=== PATIENT | male | born 1970 | race Caucasian/White ===

== ENCOUNTER 2018-11-02 04:33 | Emergency (ER) | payer MEDICAID, SELFPAY ==
[2018-11-02 04:34] VITALS: BP 218/127; PULSE 110; RESP 18; TEMP 36.5; O2SAT 97; BMI 33.8
--- NOTE | 2018-11-02 04:43 | EKG12_ITS ---
Test Reason : Blood Pressure : / mmHG Vent. Rate : 095 BPM Atrial Rate : 095 BPM P-R Int : 128 ms QRS Dur : 104 ms QT Int : 354 ms P-R-T Axes : 056 013 153 degrees QTc Int : 444 ms Normal sinus rhythm Minimal voltage criteria for LVH, may be normal variant ST & T wave abnormality, consider lateral ischemia Abnormal ECG Confirmed by ENRIQUE KING ([id number]), book or script editor NAVEED SOUTH ([id number]) on 11/04/2018 11:16:50 AM Referred By: GUILLERMO Confirmed By:ENRIQUE KING
--- NOTE | 2018-11-02 04:43 | CT_ITS ---
STUDY: CT BRAIN WITHOUT CONTRAST REASON FOR EXAM: Male, 48 years old. Occipital headache, hypertension on metastases. RADIATION DOSAGE (If Supplied By Facility): CTDIvol = ( 44.99 ) mGy, DLP = ( 745.49 ) mGycm TECHNIQUE: Transaxial CT imaging of the brain was performed without administration of intravenous contrast material. Individualized dose optimization techniques were used for this CT. COMPARISON: No relevant priors. FINDINGS: Normal soft tissue structures. Normal calvarium. Normal size ventricles and extra-axial spaces for the patient's age. There are areas of decreased attenuation within the white matter tracts of the supratentorial brain, consistent with microvascular disease changes. Normal basal ganglia and thalami. Normal brainstem. Normal cerebellum. There is no intracranial hemorrhage. There are no findings of an acute ischemic infarction. There is mucoperiosteal inflammatory disease of the paranasal sinuses consistent with mild chronic sinusitis. Mild opacification of the left inferior mastoid air cells, minimal opacification right inferior mastoid air cells. The ossicles are clear. CT/Brain/Head without Contrast IMPRESSION: Mild involutional changes of white matter. There is no acute intracranial pathology. Mild left greater than right mastoiditis, no evidence of otomastoiditis. Electronically Signed: Elizabeth Farrell MD at 5:28 EDT , Service support ,
[2018-11-02 04:57] LABS: Absolute Lymphocyte Count 2.82 X10^3/ul (0.83-4.51); Absolute Neutrophil Count 6.1 X10^3/uL (2.0-7.7); Basophil# 0.03 X10^3/uL; Basophil% 0.3 % (0-1); Eosinophil# 0.34 X10^3/uL; Eosinophils% 3.2 % (0-5); Hematocrit 42.3 % (40-54); Hemoglobin 13.6 g/dl (13.0-16.5); Lymphocyte # 2.82 X10^3/ul (4.0); Lymphocyte % 26.8 % (19-41); Mean Corp Hgb Conc 32.2 g/gl (32-36); Mean Corpuscular Hgb 27.8 pg (27.0-32.0); Mean Corpuscular Volume 86.3 fL (80-94); Mean Platelet Vol. 11.4 fl (6.2-12.0); Monocyte# 1.16 X10^3/uL; Neutrophil # 6.14 X10^3/uL (2.7-7.7); Neutrophil % 58.5 % (47-70); Platelet Count 207 K/mm3 (150-450); RBC Distribution Width CV 15.7 % (11.6-14.6); RBC Distribution Width SD 49.3 fl (35.1-43.9); White Blood Count 10.5 K/mm3 (4.4-11.0)
[2018-11-02 04:59] LABS: POSITIVE COUNT NO; POSITIVE DIFFERENTIAL NO; POSITIVE MORPHOLOGY NO
[2018-11-02 05:04] LABS: Anion Gap 6 (5-15); BUN 21 mg/dL (7-18); BUN/Creat Ratio 18.3 RATIO (10-20); Calcium,Total 8.8 mg/dL (8.5-10.1); Chloride 109 mmol/L (98-107); Creatinine, Serum 1.15 mg/dL (0.70-1.30); EST Glomerular Filtration Rate 71 mL/min (>60); Est Glom Filt Rate - Afr Amer 86 mL/min (>60); Estimated Creatinine Clearance 76.85 ml/min; Glucose 111 mg/dL (74-106); Potassium 3.9 mmol/L (3.5-5.1); Sodium Level 142 mmol/L (136-145)
[2018-11-02] MEDS: hydroCHLOROthiazide 25 MG Tablet PO (05:04)
[2018-11-02] MEDS: Lisinopril 10 MG Tablet PO (05:04)
--- NOTE | 2018-11-02 06:22 | ED.DCSUM_ITS ---
- ER Visit Summary Date of Service: 11/02/18 Chief Complaint: High blood pressure History of Present Illness: The patient is a 48 M who presents with uncontrolled blood pressure of years duration. He states that he wakes up every morning with a headache. This is also been occurring for years. He does however state that it is slowly been getting worse. He was seen in the emergency department a couple of years ago for elevated blood pressure. He was started on hydrochlorothiazide and referred to a primary care physician. Patient states that he did follow up but every time he was in the office because his blood pressure was so high he was sent to the emergency department. He states that he got tired of this so he just quit following up. He denies any chest pain or shortness of breath. No lightheadedness or dizziness. He has otherwise been well. No fevers or vomiting. Physical Examination: Initial blood pressure 218/127 heart rate 110 respiratory rate 18 afebrile Alert and oriented with no focal or lateralizing neurological deficits normal strength normal sensation PERRLA, EOMI Heart regular rhythm slightly tachycardic Lungs clear Abdomen soft Test Results: EKG shows normal sinus rhythm at a rate of 95. He does have some slight ST depression in leads I, aVL and V4 through V6 as well as T wave inversions. Labs unremarkable. BUN 21. Creatinine within normal limits. Troponin [address] of the head shows no acute pathology. Emergency Department Course and Treatment: Patient has lateral T wave abnormalities which are likely related to uncontrolled hypertension. He has no symptoms of ischemia and troponin is negative. He was given both hydrochlorothiazide and lisinopril here. On reevaluation his systolic blood pressure is improved to about 180. He is asymptomatic. Patient presents with long-standing elevated blood pressure. I do not believe he requires hospitalization at this time. He was given a referral for a primary care physician. He understands to return for new or worsening symptoms and was instructed on specific signs and symptoms to monitor for. We will start him on 2 agents. Patient discharged. Treatment Plan: [] Disposition: Discharge Impression: Uncontrolled hypertension This note was generated with [employer] software. It may contain incorrect words, spelling, and punctuation that were not noted in review of the chart prior to signing ED Disposition - Plan for ED Patient: Referrals: Care Physician,No Primary [Primary Care Provider] -
--- NOTE | 2018-11-02 06:22 | ED.DEP ---
ED Disposition - Plan for ED Patient: Instructions: ED Hypertension Conf Out Of Control Prescriptions: Hydrochlorothiazide [Hctz] 25 mg PO DAILY #30 tab Lisinopril [Zestril] 10 mg PO DAILY #30 tab Referrals: Care Physician,No Primary [Primary Care Provider] -
[2018-11-02 06:36] VITALS: BP 179/133; RESP 18
--- NOTE | 2018-11-02 06:37 | ED.DEP ---
ED Disposition - Plan for ED Patient: Instructions: ED Hypertension Conf Out Of Control Prescriptions: Hydrochlorothiazide [Hctz] 25 mg PO DAILY #30 tab Lisinopril [Zestril] 10 mg PO DAILY #30 tab Referrals: Care Physician,No Primary [Primary Care Provider] - Jim Sargent DO [STAFF PHYSICIAN] -
== END 2018-11-02 06:38 | disposition home or self-care (01) ==
LOC: ED 05:19
PROVIDERS: Emergency Provider Emergency Medicine
DX: I10 Essential (primary) hypertension (principal); Z72.0 Tobacco use; Z79.899 Other long term (current) drug therapy
CPT/HCPCS: 70450; 80048; 84484; 85025; 93005; 99284; A4216

== ENCOUNTER 2019-02-26 20:14 | Emergency (ER) | payer SELFPAY ==
[2019-02-26 20:15] VITALS: BP 169/103; PULSE 114; RESP 15; TEMP 36.4; BMI 32.5
--- NOTE | 2019-02-26 20:27 | RAD_ITS ---
STUDY: X-RAY - LEFT ANKLE REASON FOR EXAM: Male, 48 years old. Injury, pain. TECHNIQUE: 3 view(s) of the ankle. COMPARISON: None. FINDINGS: There is a nondisplaced fracture of the medial malleolus. Distal tibia and fibula are otherwise intact. No demonstrated joint effusion. Normal visualized talus and calcaneus. The visualized subtalar, talonavicular, calcaneocuboid and tarsal articulations are normal. The soft tissue structures are unremarkable. RAD/Ankle min 3 Views IMPRESSION: Nondisplaced medial malleolus fracture. Electronically Signed: June Reyna MD at 20:53 EDT Tel , Service support ,
--- NOTE | 2019-02-26 20:27 | RAD_ITS ---
STUDY: X-RAY - LEFT FOOT CLINICAL: Male, 48 years old. Injury, pain. TECHNIQUE: 3 view(s) of the foot. COMPARISON: None. FINDINGS: Acute fracture of the medial malleolus. Normal talus, calcaneus, and tarsal bones. Normal visualized subtalar, talonavicular, calcaneocuboid, tarsal and tarsometatarsal articulations. There is mild periosteal reaction along the shaft of the second metatarsal. This may reflect acute occult fracture, stress injury, less likely bone or soft tissue mass. Remaining metatarsal bones are unremarkable. Normal metatarsophalangeal joint of the great toe. Normal tibial and fibular sesamoid bones. Normal interphalangeal joint of the great toe. Normal phalanges of the great toe. Normal second through fifth metatarsophalangeal joints. Normal interphalangeal joints and phalanges of the lesser toes. Foreign body is noted in the first metatarsal interspace adjacent to the second metatarsal head. RAD/Foot min 3 Views IMPRESSION: 1. Acute medial malleolus fracture. Please refer to left ankle radiograph report. 2. Mild periosteal reaction along the second metatarsal shaft. Please note comments above. 3. Foreign body consistent with ball bearing in the first metatarsal interspace. Electronically Signed: June Reyna MD at 20:59 EDT Tel , Service support ,
--- NOTE | 2019-02-26 20:28 | ED.VISSUMM ---
- ER Visit Summary Date of Service: 02/26/19 Chief Complaint: Fall and left foot and ankle injury History of Present Illness: The patient is a 48 M M past medical history. Patient states he slipped going down the steps of his home on Wednesday. Injuring his left foot and ankle. No prior history to the left foot and ankle. No prior surgery. States is unable to walk on it. He has increasing pain and swelling to both. Denies any other injuries did not hit his head. No LOC. Physical Examination: Middle-aged male. No acute distress. Vital signs are stable afebrile. HEENT exam atraumatic. C-spine nontender. Lungs clear to auscultation. Heart regular rhythm rate about 110 no murmur. Chest wall nontender. Abdomen soft nontender. Remedies moves all 4. Neurovascular intact. Both upper extremities and right lower extremity are nontender. No signs of trauma. Normal range of motion. Normal sensation. Left lower extremity the left hip and knee are nontender or swollen. He has normal flexion-extension left knee and hip. Left ankle is swollen and tender. As is the left foot primarily in the left lateral side. DP pulses intact. There is mild bruising. He is able wiggle his toes. There is no gross bony deformity. The lower leg otherwise is nontender. Neurologically he is awake and alert with no focal motor deficits. Back is nontender. Test Results: Left ankle x-ray 3 views shows a nondisplaced medial malleolus fracture read by myself and now the radiologist. Left foot x-ray 3 views soft tissue swelling but no acute fracture noted. Emergency Department Course and Treatment: Patient treated with [place] for pain. I did go over the x-ray results with the patient. He was placed in a short leg posterior splint. Was instructed crutches no weightbearing. Treatment Plan: Ice and elevate. Follow-up with orthopedics. Nonweightbearing. Disposition: Discharge Impression: Acute fall Acute left ankle nondisplaced medial malleolus fracture Acute left foot sprain and contusion This note was generated with [employer] dictation software. It may contain incorrect words, spelling, and punctuation that were not noted in review of the chart prior to signing ED Disposition - Plan for ED Patient: Referrals: Care Physician,No Primary [Primary Care Provider] -
[2019-02-26] MEDS: HYDROcodone Bitartrate/Apap 5/325 Tablet PO (20:32)
--- NOTE | 2019-02-26 21:13 | ED.DEP ---
ED Disposition - Plan for ED Patient: Disposition: Home or Assisted Living Instructions: FRACTURE, Lower Extremity Prescriptions: Hydrocodone/Acetaminophen [[place] 7.5-325 Tablet] 1 ea PO 4X/DAY PRN PRN 5 Days #20 tab PRN Reason: Pain Prescription Printed Referrals: Payton Pereira DO [STAFF PHYSICIAN] - As soon as possible Additional Instructions: Ice and elevate your ankle as much as possible. Call and follow-up with you with possible. Call their office tomorrow morning. Motrin for pain and swelling. Limited [place] for worse pain. Keep the splint dry and clean. No weightbearing.
[2019-02-26 21:20] VITALS: RESP 20
== END 2019-02-26 21:27 | disposition home or self-care (01) ==
PROVIDERS: Emergency Provider Emergency Medicine
DX: S82.55XA Nondisplaced fracture of medial malleolus of left tibia, initial encounter for closed fracture (principal); S93.602A Unspecified sprain of left foot, initial encounter; W10.9XXA Fall (on) (from) unspecified stairs and steps, initial encounter; Y93.9 Activity, unspecified; Y92.9 Unspecified place or not applicable; Y99.9 Unspecified external cause status; Z72.0 Tobacco use
CPT/HCPCS: 29515; 73610; 73630; 99283

== ENCOUNTER → 2019-03-15 14:06 | Outpatient (CLI) | payer MEDICAID, SELFPAY ==
[2019-03-15 07:58] VITALS: BMI 32.5
--- NOTE | 2019-03-15 14:07 | RAD_ITS ---
STUDY: X-RAY - LEFT ANKLE REASON FOR EXAM: Male, 48 years old. Fracture TECHNIQUE: 3 view(s) of the ankle. COMPARISON: 02/26/2019 FINDINGS: There is a stable minimally displaced fracture of the medial malleolus. There is no significant interval healing demonstrated. There is no new fracture. There are no radiodense foreign bodies. RAD/Ankle min 3 Views IMPRESSION: No significant change in the previously seen medial malleolar fracture when compared with 02/18/2019. Electronically Signed: Edward Mckay, at 14:24 EDT Tel , Service support ,
== END ==
PROVIDERS: Referring Provider Orthopaedic Surgery; Visit Provider Orthopaedic Surgery
DX: S82.53XA Displaced fracture of medial malleolus of unspecified tibia, initial encounter for closed fracture (principal); X58.XXXA Exposure to other specified factors, initial encounter; Y93.9 Activity, unspecified; Y92.9 Unspecified place or not applicable; Y99.9 Unspecified external cause status
CPT/HCPCS: 73610

== ENCOUNTER → 2019-04-12 09:30 | Outpatient (CLI) | payer MEDICAID, SELFPAY ==
[2019-04-12 09:20] VITALS: BMI 32.5
--- NOTE | 2019-04-12 09:31 | RAD_ITS ---
STUDY: X-RAY - LEFT ANKLE REASON FOR EXAM: Male, 48 years old. Fracture TECHNIQUE: 3 view(s) of the ankle. COMPARISON: March 15, 2019 FINDINGS: There is a partially healed fracture of the medial malleolus with early callus deposition since prior study. No other significant change.. RAD/Ankle min 3 Views IMPRESSION: Early healing fracture of the medial malleolus Electronically Signed: Wicho White MD at 22:50 EDT , Service support ,
== END ==
PROVIDERS: Referring Provider Orthopaedic Surgery; Visit Provider Orthopaedic Surgery
DX: S82.53XA Displaced fracture of medial malleolus of unspecified tibia, initial encounter for closed fracture (principal); X58.XXXA Exposure to other specified factors, initial encounter; Y93.9 Activity, unspecified; Y92.9 Unspecified place or not applicable; Y99.9 Unspecified external cause status
CPT/HCPCS: 73610

== ENCOUNTER 2019-08-03 17:51 | Emergency (ER) | payer OTHER, SELFPAY ==
[2019-04-12 09:20] VITALS: BMI 32.5
[2019-08-03 17:52] VITALS: PULSE 105; RESP 16; TEMP 36.2; O2SAT 96; BMI 34.0
[2019-08-03 17:55] VITALS: BP 192/117
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
[2019-08-03 19:38] VITALS: BP 196/126; PULSE 96; RESP 16; O2SAT 93
== END 2019-08-03 19:44 | disposition home or self-care (01) ==
PROVIDERS: Emergency Provider Emergency Medicine
DX: S39.012A Strain of muscle, fascia and tendon of lower back, initial encounter (principal); V49.40XA Driver injured in collision with unspecified motor vehicles in traffic accident, initial encounter; Y93.89 Activity, other specified; Z72.0 Tobacco use
CPT/HCPCS: 99282

== ENCOUNTER 2020-10-18 10:58 | Outpatient (RCR) | payer MEDICAID, SELFPAY ==
[2020-10-18] MEDS: COVID-19 VACC, MRNA(PFIZER)/PF 30 MCG/0.3 ML SYRINGE IM (09:18)
[2020-11-08] MEDS: COVID-19 VACC, MRNA(PFIZER)/PF 30 MCG/0.3 ML SYRINGE IM (09:41)
== END 2020-10-18 23:59 ==
LOC: IMMUN 10:58
PROVIDERS: Visit Provider Family Medicine
DX: Z23 Encounter for immunization (principal)
CPT/HCPCS: 0001A; 0002A; 91300